=== PATIENT | female | born 1975 | race Caucasian/White ===

== ENCOUNTER 2023-12-06 19:01 | Emergency (ER) | payer OTHER, SELFPAY ==
[2023-12-06 19:03] VITALS: BP 165/91
[2023-12-06 19:37] LABS: % Basophils 0.5 % (0-2); % Eosinophils 2.1 % (0-6); % Immature Granulocytes 0.1 % (0-0.5); % Lymphocytes 32.3 % (20.5-51.1); % Monocytes 8.1 % (1.7-9.3); % Neutrophils 56.9 % (42.2-75.2); Absolute Eosinophils 0.2 10^3/uL (0-0.7); Absolute Lymphocytes 2.7 10^3/uL (1.2-3.4); Absolute Monocytes 0.7 10^3/uL (0.1-0.6); Absolute Neutrophils 4.7 10^3/uL (1.4-6.5); Hematocrit 38.8 % (37.0-47.0); Hemoglobin 13.5 g/dL (12.0-16.0); Mean Corp Hgb Conc. 34.8 g/dL (33.0-37.0); Mean Corpuscular Hgb 30.2 pg (27.0-31.0); Mean Corpuscular Volume 86.8 fL (81.0-99.0); Mean Platelet Volume 10.2 fL (7.4-10.4); Nucleated Red Blood Cells % 0 %; Platelet Count 282 10^3/uL (130-400); Red Blood Cell Count 4.47 10^6/uL (4.20-5.40); Red Cell Dist. Width 13.2 % (11.5-14.5); White Blood Cell Count 8.3 10^3/uL (4.8-10.8)
[2023-12-06 19:50] LABS: ALT (SGPT) 32 U/L (0-35); AST (SGOT) 32 U/L (14-36); Albumin 4.5 g/dl (3.5-5.0); Alkaline Phosphatase 84 U/L (38-126); Blood Urea Nitrogen 16 mg/dl (7-17); Calcium 9.6 mg/dl (8.4-10.2); Carbon Dioxide 22 mmol/L (22-30); Chloride 105 mmol/L (98-107); Glucose 99 mg/dl (70-99); Potassium 4.4 mmol/L (3.5-5.1); Sodium 139 mmol/L (135-145); Total Bilirubin 0.3 mg/dl (0.2-1.3); Total Protein 7.1 g/dl (6.3-8.2); eGFR > 60.00
[2023-12-06 20:01] LABS: Troponin I < 0.012 ng/ml
--- NOTE | 2023-12-06 20:15 | ED.GENMED ---
History of Present Illness
General
Chief Complaint: Cardiac Symptoms
Source: patient
Time Seen by Provider: 12/06/23 20:07
History of Present Illness
History of Present Illness:
48-year-old female presents to the emergency room complaining of palpitations and feeling lightheaded over the past several weeks. Patient states she has a 'butterfly' sensation in her chest at times. Patient does not feel like her heart is racing
but rather that it has an irregular beat to it. She also feels lightheaded at times. No shortness of breath. No heaviness or tightness in her chest. Patient denies any fever, chills, nausea or vomiting. She drinks 1 cup of coffee in the morning
but does not take any other caffeinated beverages a day. She is tolerating oral intake.
Phy Exam
Physical Exam
Physical Exam:
General: Awake, Alert, Oriented X3. No acute distress.
Vitals: unremarkable
Head: Atraumatic
Eyes: Pupils equal, EOMI
Throat: Airway intact, no exudates
Neck: Trachea midline
Lungs: Clear and equal b/l
Heart: Regular rate, no murmurs
Abd: Soft, Nontender, No pulsatile mass
Neuro: Nonfocal
Skin: Warm, dry, no rash
Extremities: pulses equal b/l, no edema
Course
Orders/Labs/Results
Orders:
Orders
12/06/23 19:11
Electrocardiogram (*1) Urgent
Reason for Study: Chest Pain
Cardiac Monitoring- Treatment ONCE
EKG- Treatment ONCE
IV Insert/Care/Rem.- Treatment PRN
O2 Therapy [RESP] Urgent
Titrate/Wean O2 to maintain O2 sat greater than (%): 90
Special Instructions: Maintain sats >/=90%
Pulse Ox/spot Check [RESP] Urgent
Quantity: 1
Special Instructions: ON ROOM AIR
12/06/23 19:27
Complete Blood Count/With Diff Urgent
Comprehensive Metabolic Panel Urgent
TSH Reflex To Free T4 Urgent
Troponin I Urgent
Abnormal Lab Results
12/06/23
19:27
Absolute Monos (auto) 0.7 H 10^3/uL
(0.1-0.6)
12/06/23 19:27
12/06/23 19:27
Vital Signs
Initial and Last Documented VS:
Initial Vital Signs
Temp Pulse Resp BP Pulse Ox
98.2 F 79 16 165/91 100
12/06/23 19:03 12/06/23 19:03 12/06/23 19:03 12/06/23 19:03 12/06/23 19:03
Last Documented Vital Signs
Temp Pulse Resp BP Pulse Ox
98.2 F 67 12 165/91 97
12/06/23 19:03 12/06/23 21:45 12/06/23 21:45 12/06/23 19:03 12/06/23 21:45
*EKG
Interpreted by ED Provider?: Yes
Interpretation: normal
Heart Rate: 73
Rate: normal
Rhythm: sinus
[place]: normal axis
QRS Pattern: normal QRS
Ischemia: no ischemia
*Story Reader Interpretation
Rate: normal
Interpretation: normal
Rhythm: sinus
*Critical Care Note
Total Time (30-74mins, 75-104mins- exclusive of procedures): Not Applicable
ED Attending Note
-
Portions of this chart may have been created with voice recognition software.� Occasional wrong word or��sound alike� substitutions may have occurred due to the inherent limitations of voice recognition software.
Discharge Plan
Departure
Patient Disposition: Home (Routine Discharge)
Date of Disposition: 12/06/23
Time of Disposition: 22:10
Patient with high blood pressure during this ER visit?: No
Condition: Good
Discharge Problem:
Palpitations
Instructions: Palpitations ED
Referrals:
Marco Kohli MD [Family Provider] -
Activity Restrictions/Additional Instructions:
Please follow up with your primary care provider. Try to cut back your caffeine intake.
Interventions
Interventions:
*Risk Screen - Suicide Last Done: 12/06/23 19:03
*General Assessment Last Done: 12/06/23 19:03
*Neglect/Abuse Screening Last Done: 12/06/23 19:03
ED- Fall Risk Assessment Last Done: 12/06/23 20:12
*ED COVID-19 Vaccine History Last Done: 12/06/23 19:03
ED- Pulmonary Assessment Last Done: 12/06/23 20:12
ED- Cardiac Assessment Last Done: 12/06/23 20:12
Discharge Date and Time
Print Language: BENGALI
[2023-12-06 20:20] LABS: TSH Reflex To Free T4 1.37 uIU/ml (0.47-4.68)
== END 2023-12-06 22:41 | disposition home or self-care (01) ==
LOC: EMR 19:01
PROVIDERS: Emergency Medicine; EMERGENCY PHYSICIAN Emergency Medicine; FAMILY PHYSICIAN Family Medicine
DX: R00.2 Palpitations (principal); R42 Dizziness and giddiness
CPT/HCPCS: 99284; 80053; 84443; 84484; 85025; 93005